=== PATIENT | female | born 1975 | race Two or more races ===

== ENCOUNTER 2024-10-09 11:30 | Inpatient (IN) | payer OTHER ==
[~2024-10-09] VITALS: Ht 243.8 cm; Wt 122.5 kg
[2024-10-09] MEDS ORDERED: HUMALOG100 UNIT/2 (13:23)
[2024-10-09] MEDS ORDERED: LANTUS SOL100 UNIT/1 (13:23)
[2024-10-09] MEDS ORDERED: GLIMEPIRIDE2 MG (13:26)
[2024-10-09] MEDS ORDERED: NEURONTIN300 MG PO (13:27)
[2024-10-09] MEDS ORDERED: WELLBUTRIN XL300 MG PO (13:27)
[2024-10-09] MEDS ORDERED: LIPITOR20 MG (13:27)
[2024-10-15] MEDS ORDERED: CEFAZOLIN SODIUM 1,000 MG VIAL ONE (07:07)
[2024-10-15] MEDS ORDERED: POVIDONE-IODINE 118 ML BOTT TOP ONE (07:07)
[2024-10-15] MEDS ORDERED: SUGAMMADEX SODIUM 200 MG/2 ML VIAL IV ONE (09:08)
[2024-10-15] MEDS ORDERED: RINGERS SOLUTION,LACTATED 1,000 ML IV SCH ×2 (13:45→15:15)
[2024-10-15] MEDS ORDERED: DEXTROSE 50 % IN WATER 0.5 G/ML DISP.SYRIN IV PRN (14:00)
[2024-10-15] MEDS ORDERED: INSULIN LISPRO 1,000 UNIT/10 ML UNITS SUBCUTANEO PRN (14:00)
[2024-10-15] MEDS ORDERED: INSULIN LISPRO 1,000 UNIT/10 ML UNITS SUBCUTANEO ONE (14:11)
[2024-10-15] MEDS ORDERED: ENALAPRILAT DIHYDRATE 1.25 MG/ML VIAL IV PRN (14:15)
[2024-10-15] MEDS ORDERED: CEFAZOLIN SODIUM 1,000 MG VIAL IV SCH ×2 (15:04→17:00)
[2024-10-15] MEDS ORDERED: OxyCODONE HCL/APAP UD (PERCOCET) PO SCH (15:16)
[2024-10-15 16:02] VITALS: BP 128/74
[2024-10-15] MEDS ORDERED: MORPHINE SULFATE 4 MG/ML CARTRIDGE IV PRN (16:15)
[2024-10-15] MEDS ORDERED: ONDANSETRON HCL 2 MG/ML VIAL IV SCH ×2 (17:00)
[2024-10-15] MEDS ORDERED: PROMETHAZINE HCL 50 MG/ML AMPUL IM SCH (17:00)
[2024-10-15] MEDS ORDERED: MEPERIDINE HCL/PF 25 MG/ML VIAL IM SCH (17:00)
[2024-10-15] MEDS ORDERED: FAMOTIDINE/PF 20 MG in 0.9 % SODIUM CHLORIDE 8 ML IV PUSH SCH (21:00)
[2024-10-16 00:05] VITALS: BP 116/71
[2024-10-16] MEDS ORDERED: OxyCODONE HCL/APAP UD (PERCOCET) PO SCH (06:00)
[2024-10-16 08:00] VITALS: BP 124/69
[2024-10-16] MEDS ORDERED: ATORVASTATIN CALCIUM 20 MG TABLET PO SCH (09:00)
[2024-10-16] MEDS ORDERED: BUPROPION HCL 150 MG TABLET.SA PO SCH (09:00)
[2024-10-16] MEDS ORDERED: SUGAMMADEX SODIUM 200 MG/2 ML VIAL IV ONE (13:45)
[2024-10-16 15:00] VITALS: BP 116/73
[2024-10-17 02:25] VITALS: BP 136/74
[2024-10-17 08:02] VITALS: BP 97/67
== END 2024-10-17 09:28 | disposition home or self-care (01) | DRG 743 ==
LOC: O/R 10-15 05:26 → OB/GYN 10-15 05:26
PROVIDERS: ADMIT Obstetrics & Gynecology; ATTEND Obstetrics & Gynecology
PROC: 0UT70ZZ Resection of Bilateral Fallopian Tubes, Open Approach (ICD-10-PCS; 2024-10-15)
PROC: 0DNW0ZZ Release Peritoneum, Open Approach (ICD-10-PCS; 2024-10-15)
PROC: 0TNB0ZZ Release Bladder, Open Approach (ICD-10-PCS; 2024-10-15)
PROC: 0UB10ZZ Excision of Left Ovary, Open Approach (ICD-10-PCS; 2024-10-15)
PROC: 0UT90ZZ Resection of Uterus, Open Approach (ICD-10-PCS; principal; 2024-10-15 11:30)
DX: D25.1 Intramural leiomyoma of uterus (principal); N80.102 Endometriosis of left ovary, unspecified depth; D27.1 Benign neoplasm of left ovary; N84.1 Polyp of cervix uteri; N80.03 Adenomyosis of the uterus; N73.6 Female pelvic peritoneal adhesions (postinfective)

== ENCOUNTER → 2025-02-25 | Emergency (ER) | payer OTHER ==
[~2025-02-25] VITALS: Ht 172.7 cm; Wt 104.3 kg
[~2025-02-25] MED LIST: CEFTRIAXONE SODIUM 2,000 MG VIAL IV STA; CEFTRIAXONE SODIUM 2,000 MG VIAL ONE; GLIMEPIRIDE2 MG; HUMALOG100 UNIT/2; LANTUS SOL100 UNIT/1; LIPITOR20 MG; NEURONTIN300 MG PO; SYNJARDY 12.5-1 EACH PO; WELLBUTRIN XL300 MG PO; ZEPBOUND5 MG/0.51 SQ
[2025-02-25 11:35] VITALS: BP 101/65; O2SAT 99
[2025-02-25 12:52] LABS: BASO % 0.5 % (0.1-1.2); EOS # 0.12 (0.04-0.54); EOS % 1.2 % (0.7-7.0); LYMPH # 1.86 (1.18-3.74); LYMPH % 18.5 % (19.3-53.1); MEAN PLATELET VOLUME 10.10 fl (9.4-12.4); MONO # 0.70 (0.24-0.82); MONO % 7.0 % (4.7-12.5); NEUT # 7.31 (1.56-6.13); NEUT % 72.5 % (34.0-71.1); RED CELL DISTRIBUTION WIDTH 16.5 % (11.6-14.4)
[2025-02-25 13:17] LABS: BUN CREA RATIO 14.0 (7.0-25.0); CREATININE SERUM 0.94 mg/dL (0.55-1.02); GFR 62.78; GLUCOSE FASTING 115.0 mg/dL (65-100); OSMOLALITY SERUM 288.0 MOSM/KG (275-295)
[2025-02-25 14:38] LABS: URINE APPEARANCE Clear; URINE BILIRRUBIN Negative (NEGATIVE); URINE BLOOD Moderate; URINE COLOR Yellow; URINE LEUKOCYTE Small; URINE NITRATE Negative; URINE PROTEIN Negative (NEGATIVE); URINE UROBILINOGEN 0.2 E.U./dl
[2025-02-25 14:42] LABS: URINE BACTERIA 1513.1 uL (0.0-1933); URINE EPITHELIAL CELLS 57.5 uL (0.0-38.8); URINE RBC 341.4 uL (0.0-20.8)
[2025-02-25 15:16] LABS: URINE CAST 0.29 uL (0.0-1.40); URINE GLUCOSE >=1000 MG/DL (NEGATIVE); URINE KETONE 40 (NEGATIVE); URINE MUCUS SCANT
[2025-02-25 15:19] LABS: URINE WBC 401.0 uL (0.0-23.2)
[2025-02-25 15:20] LABS: TYPE CELLS SQUAMOUS
== END | disposition home or self-care (01) ==
LOC: ER 11:20
PROVIDERS: General Practice
DX: N39.0 Urinary tract infection, site not specified (principal); E11.9 Type 2 diabetes mellitus without complications; Z79.4 Long term (current) use of insulin